=== PATIENT | female | born 1945 | race Caucasian/White ===

== ENCOUNTER → 2016-10-25 | Outpatient (CLI) | payer MEDICARE, BC ==
--- NOTE | 2016-10-25 11:10 | XCELERA REPORT ---
[address] [address] Lower Extremity Arterial Evaluation Name: DESHAWN SMITH Age: 71 yrs Gender: Female : 1945 Patient Status: Outpatient Patient Location: Study Date: 10/25/2016 08:36 AM Procedure: A color flow and duplex scan of the lower extremity arteries was performed bilaterally with velocity and waveform anaylsis. Ankle brachial indicies performed. Reason For Study: PERIPHERAL VASCULAR DISEASE Ordering Physician: SEEMA OCHOA Performed By: Lucia Santiago Measurements and Calculations Right Left CVICU RN PSV 133.4 113.4 cm/sec Prox PFA PSV -119.4 -124.1 cm/sec Prox SFA PSV 108.1 77.4 cm/sec Mid SFA PSV 125.7 182.7 cm/sec Dist SFA PSV -104.2 -101.5 cm/sec Prox Pop A PSV 62.5 73.3 cm/sec Dist MAIKOL PSV 76.1 57.6 cm/sec Dist BEHAVIOR THERAPIST PSV 74.7 58.0 cm/sec Nicolas Pedis PSV 15.9 24.9 cm/sec Right Side Arterial Evaluation Normal velocity and triphasic waveforms noted from the Common Femoral artery to the Popliteal artery. Biphasic with well preserved velocities from Popliteal ton infrageniculate vessels. 0-19% stenosis at the Femoral artery. Ankle Brachial index is 1.00. PPG's are Dampened, barely multiphasic. Left Side Arterial Evaluation Normal velocity and triphasic waveforms noted in the Common Femoral artery . Biphasic with well preserved velocities from Femoral to infrageniculate vessels. 0-19% stenosis at the Femoral artery. Ankle Brachial index is 0.8 . PPG's are Dampened, barely multiphasic. almost flat in the first digit. Interpretation Summary Mild hemodynamically significant lesions in the bilateral lower extremities, on duplex imaging, at rest. Discordant PPG's which are worse than would be predicted on duplex findings. : SEEMA OCHOA > Forest Silverman
== END ==
LOC: SP 07:56
PROVIDERS: ATTEND Podiatrist Foot & Ankle Surgery
DX: I73.9 Peripheral vascular disease, unspecified (principal)
CPT/HCPCS: 93925